=== PATIENT | female | born 1970 | race Caucasian/White ===

== ENCOUNTER 2016-11-08 14:32 | Emergency (ER) | payer OTHER | END 2016-11-08 14:35 | disposition home or self-care (01) | LOC: CFTX 14:32 | DX: S89.92XA Unspecified injury of left lower leg, initial encounter (principal); Z88.0 Allergy status to penicillin; X58.XXXA Exposure to other specified factors, initial encounter; Y92.89 Other specified places as the place of occurrence of the external cause | CPT/HCPCS: 99283 ==